=== PATIENT | female | born 1960 | race Two or more races ===

== ENCOUNTER 2016-06-28 06:04 | Day surgery (SDC) | payer OTHER ==
[~2016-06-28] VITALS: Ht 167.6 cm; Wt 82.4 kg
[2016-06-28] VITALS (13 sets, daily range): BP systolic 111–165; BP diastolic 59–83; PULSE 56–76; RESP 18–32; Ht 167.6 cm; Wt 82.4 kg
[2016-06-28] MEDS ORDERED: CEFAZOLIN 2 GM/50 ML (PMX) 50 ML IVPB SCH (07:00)
[2016-06-28] MEDS ORDERED: SOD CHLORIDE 0.9% 1,000 ML IV SCH (07:00)
[2016-06-28] MEDS ORDERED: TRAM50TA2 PO (08:02)
[2016-06-28] MEDS ORDERED: METF500T3 PO (08:03)
[2016-06-28] MEDS ORDERED: MIDAZOLAM 1 MG/ML 2 ML INJ IV PRN (09:00)
[2016-06-28] MEDS ORDERED: LABETALOL HCL 20MG INJ IV PRN (09:00)
[2016-06-28] MEDS ORDERED: MEPERIDINE 25 MG INJ IV PRN (09:00)
[2016-06-28] MEDS ORDERED: ONDANSETRON 4 MG INJ IV PRN (09:00)
[2016-06-28] MEDS ORDERED: HYDROmorphONE (0.2 MG/ML) 10ML SYG IV PRN ×2 (09:00)
[2016-06-28] MEDS ORDERED: hydrALAzine 20 MG INJ IV PRN (09:00)
[2016-06-28] MEDS ORDERED: morphine (1 MG/ML) 10ML SYRINGE IV PRN ×2 (09:00)
[2016-06-28] MEDS ORDERED: METOCLOPRAMIDE 10 MG INJ IV PRN (09:00)
[2016-06-28] MEDS ORDERED: DIPHENHYDRAMINE 50 MG INJ IV PRN (09:00)
[2016-06-28] MEDS ORDERED: FENTAnyl 50 MCG/ML VIAL IV PRN ×2 (09:00)
[2016-06-28] MEDS ORDERED: EPHEDrine SULFATE 50 MG/5 ML SYG IV PRN (09:00)
[2016-06-28] MEDS ORDERED: BUPIVACAINE 0.25% (MPF) 10 ML 10 ML VIAL ONE (09:02)
[2016-06-28] MEDS ORDERED: PROPOFOL 20 ML ONE (09:03)
[2016-06-28] MEDS ORDERED: NEOSTIGMINE 3 MG/3 ML SYRINGE ONE ×2 (09:03→09:44)
[2016-06-28] MEDS ORDERED: SUCCINYLCHOLINE CHLORIDE 100 MG/5 ML SYG IV ONE (09:03)
[2016-06-28] MEDS ORDERED: GLYCOPYRROLATE 0.4 MG INJ ONE ×2 (09:03→09:44)
[2016-06-28] MEDS ORDERED: LIDOCAINE 2% (SDV) 5 ML INJ ONE (09:03)
[2016-06-28] MEDS ORDERED: ROCURONIUM 50 MG INJ ONE (09:03)
[2016-06-28] MEDS ORDERED: MEPERIDINE 100 MG INJ ONE (09:04)
[2016-06-28] MEDS ORDERED: METOCLOPRAMIDE 10 MG INJ ONE (09:06)
[2016-06-28] MEDS ORDERED: ONDANSETRON 4 MG INJ ONE (09:06)
[2016-06-28] MEDS ORDERED: EPHEDrine SULFATE 50 MG/5 ML SYG ONE (09:44)
--- NOTE | 2016-06-28 09:47 | OPR ---
Date/Time of Note Date/Time of Note DATE: 06/28/16 TIME: 09:46 Operative Report Procedure Date: June 28, 2016 Preoperative Diagnosis symptomatic gallstones Postoperative Diagnosis same Operation Performed lap pratibha Surgeon: Magaly ALEX Specimens gallbladder Magaly ALEX June 28, 2016 09:47
[2016-06-28] MEDS ORDERED: LABETALOL HCL 20MG INJ ONE (09:50)
--- NOTE | 2016-06-28 09:59 | OPR ---
DATE OF OPERATION: 06/28/2016 INDICATION: This is a 55-year-old female with symptomatic gallstones. She requests surgical excisi on of her gallbladder. Risks, alternatives, benefits, and personnel were discussed with the patient . Patient expressed understanding and consents to the operation. PREOPERATIVE DIAGNOSIS: Symptomatic gallstones. POSTOPERATIVE DIAGNOSIS: Symptomatic gallstones. OPERATION: Laparoscopic cholecystectomy. SURGEON: Jayde Vu MD SPECIMENS: Gallbladder. COMPLICATIONS: None. ANESTHESIA: General. PROCEDURE: The patient was taken to the OR and prepped and draped in the usual sterile fashion. Anderson rgical timeout was performed. IV antibiotics were given. Infraumbilical transverse incision is mad e with a 15 blade. Dissection cautery was carried down to the fascia which was divided with curved Lemus scissors. An 0 Vicryl U-stitch was placed into the fascia. Balloon Sukhdev trocar was introduc ed. Pneumoperitoneum was established. Midepigastric 12 mm optical trocar and right upper quadrant and right upper flank 5 mm optical trocars were placed under direct visualization. Upon initial ins pection, there were some adhesions to the gallbladder which were taken down bluntly. The cystic katie t was identified. The critical view was established. The cystic duct was divided using a 35 mm Ech ros vascular stapler. The staple line was reinforced with clips. Cystic artery was divided with 3 clips proximal, 1 clip distal. The gallbladder was taken off the gallbladder bed. There was good hemostasis. Gallbladder was retrieved using an Endo Catch bag. The 0 Vicryl U-stitch was tied down after all ports were removed under direct visualization. Skin was closed using skin kole. Loca l anesthesia was injected. Dry dressings were applied. Dictated By: JAYDE VU MD SB/CHASE Conf#: [id number] DID#: [id number]
[2016-06-28] MEDS ORDERED: HYDROCODONE/APAP (5/325) TAB PO ONE (10:00)
== END 2016-06-28 11:36 | disposition home or self-care (01) ==
LOC: SDS 06:04
PROVIDERS: ATTEND Surgery
DX: K80.10 Calculus of gallbladder with chronic cholecystitis without obstruction (principal); E11.9 Type 2 diabetes mellitus without complications; E78.5 Hyperlipidemia, unspecified
CPT/HCPCS: 47562; 82962; 88304; J2175; J2405; J2710; J2765; J7999; Z7512; Z7610